=== PATIENT | male | born 1960 | race Caucasian/White ===

== ENCOUNTER → 2020-10-06 | Outpatient (CLI) | payer OTHER ==
[~2020-10-06] MED LIST: CARVEDILOL25 MG PO; DAILY VITE1 EAC1 PO; LISINOPRIL20 MG PO; PLAVIX 75 MG TA75 MG PO; SPIRONOLACTONE25 MG PO; TYLENOL ARTHRI650 MG PO; VITAMIN D325 MC3 PO
[2020-10-06 09:47] LABS: HEMATOCRIT 39.2 % (42.0-52.0); HEMOGLOBIN 13.1 gm/dL (14.0-18.0); MCH 29.1 pg (26.0-34.0); MCHC 33.5 g/dL (28.0-37.0); MCV 86.8 fL (80.0-100.0); RBC 4.52 mil/uL (4.50-6.00); RDW 14.8 % (10.5-14.5); WBC 7.7 thou/uL (4.0-11.0)
[2020-10-06 09:55] LABS: ALBUMIN 3.7 g/dL (3.4-5.0); CREATININE 0.7 mg/dL (0.7-1.3)
[2020-10-06 10:03] LABS: INR 1.02; PROTIME 11.1 Seconds (10.5-12.1)
[2020-10-06 10:20] LABS: URINE BILIRUBIN NEGATIVE (Negative); URINE BLOOD NEGATIVE (Negative); URINE CLARITY CLEAR; URINE COLOR YELLOW; URINE GLUCOSE-RANDOM* NEGATIVE (Negative); URINE KETONES NEGATIVE (Negative); URINE LEUKOCYTES-REFLEX NEGATIVE (Negative); URINE NITRITE-REFLEX NEGATIVE (Negative); URINE PROTEIN (DIPSTICK) NEGATIVE (Negative)
--- NOTE | 2020-10-06 14:14 | EKG ---
[address] [address] ELECTROCARDIOGRAM REPORT Name: CARINE HDZ [id number] Admission: 10/06/20 Attend Phys: Prince King MD Discharge: Date of : 56 Report #: [id number] [facility] Test Date: 2020-10-06 Test Time: 09:30:24 Pat Name: CARINE HDZ Department: Room: Gender: Small Products I Assembler: KAMALJIT TAYLOR : 1960 Requested By: Prince King Order Number: [id number] MD: Gustavo Cope Measurements Intervals [place] Rate: 61 P: 65 CT: 283 QRS: -22 QRSD: 104 T: 50 QT: 402 QTc: 405 Interpretive Statements Sinus rhythm Prolonged CT interval Inferior infarct, old Anterior infarct, old No previous ECG available for comparison Electronically Signed On 10-06-2020 14:14:27 CDT by Gustavo Cope [email or web address] <ELECTRONICALLY SIGNED> By: Gustavo Cope MD, [facility] 10/06/20 1414 929 9 Gustavo Cope MD, FACC /EPI
[2020-10-07 00:06] LABS: GLYCOHEMOGLOBIN (HGB A1C) 5.3 % (4.8-5.6)
== END ==
LOC: PAC 06:34
PROVIDERS: ATTEND Orthopaedic Surgery
DX: Z01.812 Encounter for preprocedural laboratory examination (principal); Z01.810 Encounter for preprocedural cardiovascular examination; Z20.822 Contact with and (suspected) exposure to COVID-19; M16.11 Unilateral primary osteoarthritis, right hip; E11.9 Type 2 diabetes mellitus without complications; Z91.048 Other nonmedicinal substance allergy status

== ENCOUNTER → 2020-10-12 | Outpatient (CLI) | payer OTHER | LOC: SJCVCIMAG 09:26 | PROVIDERS: ATTEND Internal Medicine Cardiovascular Disease | DX: I44.0 Atrioventricular block, first degree (principal); I49.3 Ventricular premature depolarization; R06.00 Dyspnea, unspecified; I34.0 Nonrheumatic mitral (valve) insufficiency; I77.89 Other specified disorders of arteries and arterioles; I11.0 Hypertensive heart disease with heart failure; I50.9 Heart failure, unspecified; E66.9 Obesity, unspecified; G47.30 Sleep apnea, unspecified; Z95.3 Presence of xenogenic heart valve; Z79.899 Other long term (current) drug therapy; Z82.49 Family history of ischemic heart disease and other diseases of the circulatory system ==

== ENCOUNTER 2020-10-13 06:11 | Observation (INO) | payer OTHER ==
[~2020-10-13] VITALS: Ht 182.9 cm; Wt 122.5 kg
[2020-10-13 08:30] VITALS: BP 111/63
[2020-10-13 11:28] VITALS: BP 130/78
--- NOTE | 2020-10-13 13:57 | NUR ---
ASSUMED PT CARE AT 1130 FROM PACU. PT IS ALERT & ORIENTED X4. PT HAS IV SITE ON RFA. PT HAS RIGHT HIP [employer], [employer], SCD AND ICE PACK. PT BROUGHT HIS CPAP MACHINE FROM HOME. PT HAS HEMOVAC DRAIN. PT TOLERATED MEDICATION AND DIET WELL. NO C/O OF PAIN, NAUSEA AND VOMITING. PT ON THE BED, BED ON THE LOWEST POSITION, SIDE RAILS UP, CALL LIGHT WITHIN REACH. WILL CONTINUE TO MONITOR PT. FOLLOW POC.
--- NOTE | 2020-10-13 14:54 | NUR ---
ASSESSMENT: CM REVIEWED CHART AND SPOKE WITH PATIENT AT THE BEDSIDE. PT IS ALERT AND ORIENTED X4. PT IS S/P RIGHT THR. PT REPORTS THAT HE LIVES IN A TRAILOR THAT HAS A RAMP TO ENTER. PT HAS NO STEPS ONCE INSIDE. PT REPORTS THAT HE LIVES ALONE BUT HAS A GREAT SUPPORT SYSTEM OF ABOUT 20 PEOPLE THAT CAN HELP HIM IF NEEDED HE STATES. PT REPORTS THAT HE USES HIS 4 WHEEL WALKER AT HOME WELL CPAP MACHINE. PT REPORTS HE HAS NO HX OF HH IN THE PAST BUT STATES HE HAD BEEN TO A SNF BEFORE IN [place], [place]. PT REPORTS THAT HE ANTICIPATES HE WILL HAVE NO NEEDS AT THE TIME OF DISCHARGE BUT CM WILL CONTINUE TO FOLLOW AND FOLLOW THERAPY EVAL RECOMMENDATIONS.
[2020-10-13 15:26] VITALS: BP 92/53
[2020-10-13 17:07] VITALS: BP 122/67
[2020-10-13 19:59] VITALS: BP 110/61
[2020-10-14 02:26] LABS: ABSOLUTE NEUTROPHILS 8.8 thou/uL (1.4-8.2); BASOPHILS 0.3 % (0.0-2.0); EOSINOPHILS 0.4 % (0.0-3.0); HEMATOCRIT 29.6 % (42.0-52.0); HEMOGLOBIN 10.3 gm/dL (14.0-18.0); MCH 30.1 pg (26.0-34.0); MCHC 34.7 g/dL (28.0-37.0); MCV 86.7 fL (80.0-100.0); MONOCYTES 6.6 % (1.0-8.0); PLATELET COUNT 185 thou/uL (150-400); POLYS 76.7 % (36.0-66.0); RBC 3.41 mil/uL (4.50-6.00); RDW 14.5 % (10.5-14.5); WBC 11.5 thou/uL (4.0-11.0)
[2020-10-14 02:32] LABS: CALCIUM 8.4 mg/dL (8.5-10.1); CREATININE 0.9 mg/dL (0.7-1.3); MAGNESIUM 1.9 mg/dL (1.8-2.4); POTASSIUM 3.9 mmol/L (3.5-5.1)
--- NOTE | 2020-10-14 05:27 | NUR ---
Pt. rested quietly at short intervals during the night when checked on during frequent rounds. No c/o pain. Up and ambulated this am with gait belt and walker down the castro and did well. Dressing to right hip is intact.
[2020-10-14 05:41] VITALS: BP 96/45
[2020-10-14 08:17] VITALS: BP 110/60
--- NOTE | 2020-10-14 10:57 | O ---
[facility] [place] [address] OPERATIVE REPORT Name: CARINE HDZ Room #: 447-P ADM IN M.R.#: [id number] Admission: 10/13/20 Attend Phys: Prince King MD Discharge: Date of : 56 Report #: [id number] THIS REPORT FOR: cc: FAM - Family physician unknown FAM - Family physician unknown Prince King MD ~ DATE OF SERVICE: 10/13/2020 PREOPERATIVE DIAGNOSIS: End-stage degenerative arthritis, right hip. POSTOPERATIVE DIAGNOSIS: End-stage degenerative arthritis, right hip. PROCEDURE: Right total hip replacement. 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 He has had chronic progressive right hip pain with severe degenerative arthritis, total hip replacement has been delayed by multiple other problems including morbid obesity and cardiac disease. He has had previous bowel surgery and then gastric bypass surgery. He underwent aortic valve replacement about 1 year ago. He has been moderately successful weight reduction, but he still is rather large. He does have difficulty with degenerative arthritis in other joints including principally the right knee, which has been treated conservatively with injections in the past. He does have a moderate flexion contracture of both the right hip and the right knee related to his degenerative arthritis and probably his chronic sedentary activity as a truck driver heavy. He now is using a walker intermittently, but is still trying to work as a truck driver heavy. His symptoms are severe. We have elected to go ahead with a total hip replacement. We have discussed that he is at significantly more risk given his chronic and severe symptoms, obesity, cardiac disease and chronic flexion contractures of the hip and knee. He is also on chronic anticoagulation principally using Plavix, which places him at some increased risk as well. DESCRIPTION OF PROCEDURE: The patient was taken to the operating room where he was placed under general anesthesia. Prophylactic intravenous antibiotics were administered. He was turned to the left lateral decubitus position. The right hip, thigh and leg were meticulously prepped and draped. A slightly curving posterolateral skin incision was made and carried through fascia and gluteus to expose the posterior aspect of the hip joint. The short external rotators and caps were taken down and preserved and tagged with several #1 FiberWire sutures. The hip was dislocated posteriorly. Marked degenerative change and marked deformity of the head and acetabulum was noted. There was significant spurring, which was resected. A femoral neck osteotomy was performed. The Whitney and Nephew hip system was utilized. The femoral canal was opened with canal reamers [address] [address] OPERATIVE REPORT Name: CARINE HDZ Room #: 447-P [facility] IN .R.#: [id number] Admission: 10/13/20 Attend Phys: Prince King MD Discharge: Date of : 56 Report #: [id number] and hand broaches. A size 16 stem seemed to fit most appropriately. The calcar was trimmed down to an appropriate level. Attention was then directed to the acetabulum, which was sequentially reamed with some difficulty given his very large size. Ultimately, a 60 mm reamer seemed to be most appropriate. A Whitney and Nephew size 62, 3-hole StikTite hemispherical shell was then inserted. This was placed in alignment with his true acetabulum, which positioned this at about 45 degrees off of vertical and 20-25 degrees of anteversion. The shell seated nicely and appeared to be secure. In addition, three cancellous screws were placed through the apical holes engaging good periacetabular bone with additional overall stability. A 40 mm polyethylene liner was then inserted placing the 20-degree elevated lip at about the 9 o'clock posterior position. This seated nicely and appeared to be secure. The permanent Whitney and Nephew size 16 high offset Synergy porous femoral stem was inserted. This was placed in about 20 degrees of anteversion. It seated nicely and appeared to be secure. Trial reduction was performed and a +4 mm neck length with a 40 mm head size seemed to fit most appropriately. The hip is still somewhat tight in extension as there does appear to be significant chronic flexion contracture. This was improved somewhat by removing some of the anterior osteophytes along the acetabular rim. Nevertheless, the hip is still much tighter in flexion than in extension. This was balanced by adjusting the neck length and assessing leg length. The hip seems satisfactorily stable when using a +4 mm neck length. The permanent 40 mm Oxinium head with a +4 mm neck length sleeve was then selected. This was impacted on the Judd taper. The hip was reduced. Alignment, range of motion, stability and leg length appeared to be satisfactory. There was a significant amount of general oozing from all soft tissue and bony surfaces throughout the procedure. This may be related to his Plavix, although he notes he stopped this several days ago. Total blood loss throughout the procedure was estimated at about 1000 mL. He remained hemodynamically stable throughout the procedure and was given back fluids but no blood replacement. A single Hemovac was left in the wound at the end of the procedure exiting through a separate stab incision. The bleeding at that point had largely resolved. The capsule and short external rotators were then repaired back to bone using #1 FiberWire sutures passed through drill holes in the greater trochanter. The fascia was closed with multiple #1 Vicryl sutures. The adipose tissues and subcutaneous tissues were closed with 0 Monocryl. The skin was closed with skin fabian. A sterile dressing was applied. The patient was awakened and returned to recovery room in good condition. <ELECTRONICALLY SIGNED> By: Prince King MD 10/14/20 1057 [phone] Prince King MD /nt
--- NOTE | 2020-10-14 11:03 | NUR ---
Assumed care of pt at 0700. Pt a&ox4. Denies pain and refuses pain medications. Dressing c/d/i. Pt worked with physical therapy. Hemovac drain removed. Call light within reach. Fall precautions in place. Will continue to monitor.
--- NOTE | 2020-10-14 12:25 | D ---
[facility] [place] [address] [place] [address] DISCHARGE SUMMARY Name: CARINE HDZ Room #: 447-P ADM IN M.R.#: [id number] Admission: 10/13/20 Attend Phys: Prince King MD Discharge: Date of : 56 Report #: [id number] THIS REPORT FOR: cc: FAM - Family physician unknown FAM - Family physician unknown Prince King MD ~ FINAL DIAGNOSES: 1. End-stage degenerative arthritis, right hip. 2. Atherosclerotic cardiovascular disease and history of aortic valve replacement. 3. Obesity. 4. Hypertension. OPERATIVE PROCEDURE: Right total hip arthroplasty. 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 He now has very limited range of motion of the right hip and a moderate flexion contracture, both the right hip and the right knee. His hip replacement surgery has been delayed because of other medical issues including morbid obesity and cardiac disease. He underwent gastric bypass surgery and more recently an aortic valve replacement done about one year ago. He is on chronic anticoagulation. At this point, he seems safe for hip replacement surgery and we have elected to proceed with that now. HOSPITAL COURSE: The patient was admitted and taken to the operating room on 10/13/2020. He underwent right total hip replacement, which he tolerated well. There was, however, rather moderate ongoing bleeding throughout the procedure with a total blood loss of about 1000 mL. Postoperatively, he has been hemodynamically stable, but with a moderate low hemoglobin of about 10.3 and mild postural hypotension. Following procedure, he had surprisingly little discomfort and he is managing well with minimal pain medication. The Hemovac drain has minimal output at this point and will be removed today. He has already started with activity with physical therapy assistance and is making good progress, but still needs some assistance to be fully functional and safe. I think he is a good candidate for discharge home tomorrow. He notes he has very little if any help at home and so will be largely independent. I would like to make sure he is safe and independent here today before discharge. He is on minimal if any oral pain medication. OTHER MEDICATIONS: Include Coreg 25 mg b.i.d., Plavix 75 mg daily, spironolactone 25 mg daily, Tylenol 650 mg 4 times daily as needed for pain, lisinopril 20 mg daily. I have asked him to call me if there are any problems [address] [address] DISCHARGE SUMMARY Name: CARINE HDZ Room #: 447-P [facility] IN .R.#: [id number] Admission: 10/13/20 Attend Phys: Prince King MD Discharge: Date of : 56 Report #: [id number] or questions. I will plan to see him back in the office in 1 week for routine followup and in 2 weeks for suture removal. <ELECTRONICALLY SIGNED> By: Prince King MD 10/14/20 1225 [id number] Prince King MD /nt
--- NOTE | 2020-10-14 15:12 | NUR ---
ON-GOING ASSESSMENT: CM REVIEWED CHART. PT CONTINUES WITH THERAPIES AND PLANS TO LIKELY DISCHARGE HOME TOMORROW AM. PT REPORTS HAVING ALL NEEDED EQUIPMENT AT HOME AND GOOD SUPPORT FROM FRIENDS/FAMILY. PT SHOULD HAVE NO NEEDS FROM CM.
[2020-10-14 17:56] VITALS: BP 121/56
[2020-10-14 19:05] VITALS: BP 112/59
--- NOTE | 2020-10-15 04:11 | NUR ---
PT PLEASANT. CONTINUES TO DENY PAIN. BEEN USING URINAL-VOIDING OKAY. RIGHT HIP INCISION WITH JACKIE PADDYG C/D/I.
[2020-10-15 06:15] VITALS: BP 118/62
[2020-10-15 07:38] VITALS: BP 118/62
[2020-10-15 07:41] VITALS: BP 119/67
--- NOTE | 2020-10-15 08:18 | NUR ---
Assumed care of pt at 0700. Pt a&ox4. Pain controlled. Dressing c/d/i. Pt ambulates SBA with walker. Pt discharging to home this am. Call light within reach. Will continue to monitor until discharge.
== END 2020-10-15 09:01 | disposition home or self-care (01) ==
LOC: PRE → 4S 06:11 → TBA 06:11 → 4S 11:11 → OR 12:19 → EDSTATUS 12:29 → PRE 12:30 → 4S 10-15 09:01
PROVIDERS: Nurse Practitioner; ADMIT Orthopaedic Surgery; ATTEND Orthopaedic Surgery
DX: M16.11 Unilateral primary osteoarthritis, right hip (principal); Z20.822 Contact with and (suspected) exposure to COVID-19; I11.0 Hypertensive heart disease with heart failure; I50.9 Heart failure, unspecified; E11.9 Type 2 diabetes mellitus without complications; I25.10 Atherosclerotic heart disease of native coronary artery without angina pectoris; G47.30 Sleep apnea, unspecified; Z79.899 Other long term (current) drug therapy
CPT/HCPCS: 10102; 50010; 50101; 50382; 50414; 51412; 53000; 53368; 56521; 56525; 56530; 57095; 57103; 62110; 62900; 70005